=== PATIENT | female | born 1935 | race Caucasian/White ===

== ENCOUNTER → 2016-07-12 | Outpatient (CLI) | payer BC, MEDICARE | END | disposition home or self-care (01) | LOC: PCVCIMAG 13:34 | PROVIDERS: ATTEND Internal Medicine Cardiovascular Disease | DX: I48.91 Unspecified atrial fibrillation (principal); I50.9 Heart failure, unspecified; E78.00 Pure hypercholesterolemia, unspecified; Z95.0 Presence of cardiac pacemaker | CPT/HCPCS: 80061; 93005; 93306; G0463 ==

== ENCOUNTER → 2016-12-21 | Outpatient (CLI) | payer BC ==
--- NOTE | 2016-12-21 17:45 | PCVCIMAG ---
APPROVED REPORT Study performed: 12/21/2016 13:44:08 EXAM: Comprehensive 2D, Doppler, and color-flow Echocardiogram Patient Location: Echo lab Status: routine BSA: 1.61 HR: 61 bpmBP: 134/86 mmHg Rhythm: NSR Other Information Study Quality: Good Indications Atrial Fibrillation Pacemaker Mitral Valve repair 2D Dimensions LVEF(%): 43.10 (>50%) IVSd: 8.96 (7-11mm) LVDd: 33.57 mm PWd: 10.08 (7-11mm)Ascending Ao: 31.11 (22-36mm) LVDs: 26.66 (25-40mm) Left Atrium: 38.83 (27-40mm) Aortic Root: 27.64 mm LV Single Plane 4CH: 49.05 % LV Single Plane 2CH: 46.24 %Ruiz's LVEF: 47.65 % Biplane EF: 46.7 % Volumes Left Atrial Volume (Systole) Single Plane 4CH: 38.89 mLSingle Plane 2CH: 46.30 mL LA ESV Index: 26.00 mL/m2 Aortic Valve AoV Peak Vazquez.: 1.15 m/s AO Peak Gr.: 5.32 mmHgLVOT Max P.15 mmHg LVOT Max V: 0.72 m/s Mitral Valve MV Peak Gr.: 19.65 mmHg MV Mean Gr.: 5.10 mmHg MV Max Vazquez.: 2.22 m/s MV Mean Vazquez.: 0.92 m/s MV VTI: 383.74 mm MV PHT: 74.10 ms MVA (PHT): 2.97 cm2 IVRT: 89.97 ms Pulmonary Valve PV Peak Vazquez.: 0.78 m/sPV Peak Gr.: 2.43 mmHg Pulmonary Vein P Vein S: 0.35 m/s P Vein D: 0.53 m/s P Vein S/D Ratio: 0.66 Tricuspid Valve TR Peak Vazquez.: 3.37 m/s TR Peak Gr.: 45.37 mmHg Left Ventricle The left ventricle is normal size. There is normal LV segmental wall motion. There is normal left ventricular wall thickness. Left ventricular systolic function is borderline lower limits of normal. LVEF is 50%. This study is not technically sufficient to allow evaluation of the LV diastolic function. Right Ventricle The right ventricle is normal size. The right ventricular systolic function is normal. Atria Left atrium is mildly dilated. Right atrium is mildly dilated. Aortic Valve The aortic valve is normal in structure. No aortic regurgitation is present. There is no aortic valvular stenosis. Mitral Valve Normally functioning mitral valve repair with mild-moderate regurgitation. No mitral stenosis with MVA of 3.0 cm2 and mean gradient of 5.1 mmHg, similar to previous studies. Mild-moderate mitral regurgitation. No evidence of mitral valve stenosis. Tricuspid Valve The tricuspid valve is normal in structure. Moderate tricuspid regurgitation with PAP of 55 mmHg. Pulmonic Valve The pulmonary valve is normal in structure. There is no pulmonic valvular regurgitation. Great Vessels The aortic root is normal in size. IVC is dilated to 2.5 and collapses <50% with inspiration. Pericardium There is no pericardial effusion. <Conclusion> The left ventricle is normal size. Left ventricular systolic function is borderline lower limits of normal. LVEF is 50%. This study is not technically sufficient to allow evaluation of the LV diastolic function. The right ventricle is normal size. Left atrium is mildly dilated. Right atrium is mildly dilated. No aortic regurgitation is present. There is no aortic valvular stenosis. Normally functioning mitral valve repair with mild-moderate regurgitation. No mitral stenosis with MVA of 3.0 cm2 and mean gradient of 5.1 mmHg, similar to previous studies. Moderate tricuspid regurgitation with PAP of 55 mmHg. The aortic root is normal in size. There is no pericardial effusion.
== END | disposition home or self-care (01) ==
LOC: PCVCIMAG 13:24
PROVIDERS: ATTEND Internal Medicine Cardiovascular Disease
DX: I48.2 Chronic atrial fibrillation (principal); I08.1 Rheumatic disorders of both mitral and tricuspid valves; I10 Essential (primary) hypertension; E78.00 Pure hypercholesterolemia, unspecified; Z79.01 Long term (current) use of anticoagulants
CPT/HCPCS: 80061; 93279; 93306; G0463

== ENCOUNTER → 2017-06-20 | Outpatient (CLI) | payer BC | END | disposition home or self-care (01) | LOC: PCVCCLINIC 14:14 | DX: I48.2 Chronic atrial fibrillation (principal); E78.1 Pure hyperglyceridemia; I10 Essential (primary) hypertension; R94.31 Abnormal electrocardiogram [ECG] [EKG]; Z95.0 Presence of cardiac pacemaker; Z98.890 Other specified postprocedural states; Z79.899 Other long term (current) drug therapy; Z79.01 Long term (current) use of anticoagulants | CPT/HCPCS: 80061; 93005; G0463 ==

== ENCOUNTER → 2017-12-07 | Outpatient (CLI) | payer BC | END | disposition home or self-care (01) | LOC: PCVCCLINIC 14:00 | PROVIDERS: ATTEND Internal Medicine Cardiovascular Disease | DX: I48.91 Unspecified atrial fibrillation (principal); E78.00 Pure hypercholesterolemia, unspecified; I34.0 Nonrheumatic mitral (valve) insufficiency; Z95.0 Presence of cardiac pacemaker; Z98.890 Other specified postprocedural states; Z79.01 Long term (current) use of anticoagulants | CPT/HCPCS: 80061; 93005; G0463 ==

== ENCOUNTER → 2018-06-25 | Outpatient (CLI) | payer BC ==
--- NOTE | 2018-06-25 14:21 | PCVCIMAG ---
APPROVED REPORT Study performed: 06/25/2018 12:52:37 EXAM: Comprehensive 2D, Doppler, and color-flow Echocardiogram Patient Location: Echo lab Status: routine BSA: 1.55 HR: 59 bpmBP: 132/68 mmHg Rhythm: Pacemaker Other Information Study Quality: Adequate Indications Atrial Fibrillation Pacemaker mitral valve repair 2D Dimensions IVSd: 10.63 (7-11mm) LVDd: 36.52 mm PWd: 8.70 (7-11mm)Ascending Ao: 34.27 (22-36mm) LVDs: 27.12 (25-40mm) Left Atrium: 38.27 (27-40mm) Aortic Root: 29.51 mm LV Single Plane 4CH: 51.00 % LV Single Plane 2CH: 45.01 % Biplane EF: 49.3 % Volumes Left Atrial Volume (Systole) Single Plane 4CH: 45.81 mLSingle Plane 2CH: 54.35 mL LA ESV Index: 33.00 mL/m2 Aortic Valve AoV Peak Vazquez.: 1.16 m/s AO Peak Gr.: 5.36 mmHgLVOT Max P.95 mmHg LVOT Max V: 0.70 m/s Mitral Valve MV Peak Gr.: 17.63 mmHg MV Mean Gr.: 3.93 mmHg MV Max Vazquez.: 2.10 m/s MV Mean Vazquez.: 0.80 m/s MV VTI: 383.80 mm MV PHT: 66.42 ms MVA (PHT): 3.31 cm2 IVRT: 86.51 ms Pulmonary Valve PV Peak Vazquez.: 0.64 m/sPV Peak Gr.: 1.64 mmHg Tricuspid Valve TR Peak Vazquez.: 3.12 m/s TR Peak Gr.: 38.87 mmHg Left Ventricle The left ventricle is normal size. There is normal LV segmental wall motion. There is normal left ventricular wall thickness. Left ventricular systolic function is normal. The left ventricular ejection fraction is within the normal range. LVEF is 50%. This study is not technically sufficient to allow evaluation of the LV diastolic function. Right Ventricle The right ventricle is normal size. The right ventricular systolic function is normal. Pacemaker lead is present in the right ventricle. Atria The left atrium size is normal. The right atrium size is normal. Pacemaker lead is present in the right atrium. Aortic Valve The aortic valve is normal in structure. No aortic regurgitation is present. There is no aortic valvular stenosis. Mitral Valve Normally functioning mitral valve repair. There is mild mitral valve regurgitation noted. No evidence of mitral valve stenosis. Tricuspid Valve The tricuspid valve is normal in structure. Moderate tricuspid regurgitation with PAP of 49 mmHg. Pulmonic Valve The pulmonary valve is normal in structure. There is no pulmonic valvular regurgitation. Great Vessels The aortic root is normal in size. IVC is normal in size and collapses >50% with inspiration. Pericardium There is no pericardial effusion. There is no pleural effusion. <Conclusion> The left ventricle is normal size. LVEF is 50%. This study is not technically sufficient to allow evaluation of the LV diastolic function. The right ventricle is normal size. The right atrium size is normal. Pacemaker lead is present in the right atrium. The aortic valve is normal in structure. There is mild mitral valve regurgitation noted. Moderate tricuspid regurgitation with PAP of 49 mmHg. The aortic root is normal in size. There is no pericardial effusion.
== END | disposition home or self-care (01) ==
LOC: PCVCIMAG 12:23
PROVIDERS: ATTEND Internal Medicine Cardiovascular Disease
DX: I08.1 Rheumatic disorders of both mitral and tricuspid valves (principal); I48.91 Unspecified atrial fibrillation
CPT/HCPCS: 93306

== ENCOUNTER → 2018-09-10 | Outpatient (CLI) | payer BC | END | disposition home or self-care (01) | LOC: PCVCCLINIC 14:20 | PROVIDERS: ATTEND Internal Medicine Cardiovascular Disease | DX: I48.91 Unspecified atrial fibrillation (principal); E78.00 Pure hypercholesterolemia, unspecified; I10 Essential (primary) hypertension; Z95.0 Presence of cardiac pacemaker; Z91.041 Radiographic dye allergy status; Z88.8 Allergy status to other drugs, medicaments and biological substances | CPT/HCPCS: 93279 ==